=== PATIENT | female | born 2000 | race Two or more races ===

== ENCOUNTER 2023-10-06 14:57 | Emergency (ER) | payer OTHER ==
[~2023-10-06] VITALS: Ht 167.6 cm; Wt 80.8 kg
[2023-10-06 15:55] VITALS: BP 129/79; PULSE 117; RESP 18; TEMP 99.6; O2SAT 96
[2023-10-06] MEDS: SODIUM CHLORIDE 0.9% 1,000 ML IV ONE (17:01)
[2023-10-06] MEDS ORDERED: AUG875T PO (17:06)
[2023-10-06] MEDS ORDERED: ACET500T58 PO (17:06)
[2023-10-06] MEDS ORDERED: IBUP-1455 PO (17:06)
[2023-10-06] MEDS ORDERED: CIPR1SUS8 OT (17:06)
== END 2023-10-06 17:04 | disposition home or self-care (01) ==
LOC: ER 14:57
DX: B34.9 Viral infection, unspecified (principal); R51.9 Headache, unspecified

== ENCOUNTER 2023-10-22 16:08 | Emergency (ER) | payer OTHER ==
[~2023-10-22] VITALS: Ht 167.6 cm; Wt 82.6 kg
[~2023-10-22 16:08] MED LIST: ACET500T58 PO; AUG875T PO; CIPR1SUS8 OT; IBUP-1455 PO
[2023-10-22] MEDS ORDERED: IBUP-1456 PO (20:08)
[2023-10-22] MEDS ORDERED: CYCL-614 PO (20:08)
[2023-10-22] MEDS: KETOROLAC TROMETH 60MG/2ML VIAL IM ONE (20:38)
[2023-10-22 20:53] VITALS: BP 113/78; PULSE 82; RESP 20; TEMP 98.6; O2SAT 98
== END 2023-10-22 21:07 | disposition home or self-care (01) ==
LOC: ER 16:08
DX: S16.1XXA Strain of muscle, fascia and tendon at neck level, initial encounter (principal); S39.012A Strain of muscle, fascia and tendon of lower back, initial encounter; S46.811A Strain of other muscles, fascia and tendons at shoulder and upper arm level, right arm, initial encounter; Z98.890 Other specified postprocedural states; Z79.899 Other long term (current) drug therapy; Z91.018 Allergy to other foods; V43.52XA Car driver injured in collision with other type car in traffic accident, initial encounter; Y93.I9 Activity, other involving external motion; Y92.89 Other specified places as the place of occurrence of the external cause; Y99.8 Other external cause status
CPT/HCPCS: 81025; 96372; 99283; J1885